=== PATIENT | female | born 2005 | race African-American/Black ===

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

== ENCOUNTER 2024-10-20 08:10 | Inpatient (IN) | payer MEDICAID ==
[~2024-10-20] VITALS: Ht 152.4 cm; Wt 49.1 kg
[2024-10-20 08:35] LABS: Urine Bacteria None Seen /hpf (None Seen)
--- NOTE | 2024-10-20 08:39 | ED.PDOC ---
HPI Comments 19 year old female presents to the ED with chief complaint of palpitations and chest pain. Patient reports that she has been experiencing palpitations with associated sharp chest pain since last night, being unable to sleep due to them. Patient relays that she has had intermittent palpitations in the past and was evaluated by a water jet loom fixer. Patient states she had an ultrasound of the heart performed and a stress test, but no diagnosis has been made. Patient notes she takes Metoprolol and her last palpitation episode was on 10/12/24. Patient denies any SOB, dizziness, N/V, headache, numbness, or weakness. Time Seen by MD: 08:37 Primary Care Provider: none Reviewed Notes: Nurses Notes, Medications, Allergies Allergies: Coded Allergies: NO KNOWN ALLERGIES (Unverified , 02/06/23) Home Meds Active Scripts Acetaminophen (Tylenol 8 Hour Arthritis) 650 Mg Tab, 650 MG PO TID, #30 TAB Prov:TALADRIANA COLE 02/06/23 Information Source: Patient Mode of Arrival: Ambulatory Severity: Moderate Timing: Hours Duration: Since onset Prehospital treatment: None Location: Chest (L) Radiation: No Radiation Quality: Sharp Onset: At Rest Cardiac Risk Factors: None PE Risk Factors: None History of: Similar pain in past Associated Signs and Symptoms: Palpitations Past Medical History PAST MEDICAL HISTORY: Denies Surgical History: Denies all surgeries [employer]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 Family History Family History: Reviewed,noncontributory to illness Social History Smoker: Non-Smoker Alcohol: Denies ETOH Use Drugs: Denies Drug Use Lives In: Home Constitutional: denies: chills, diaphoresis, fatigue, fever, malaise, sweats, weakness, others EENTM: denies: blurred vision, double vision, ear bleeding, ear discharge, ear drainage, ear pain, ear ringing, eye pain, eye redness, hearing loss, mouth pain, mouth swelling, nasal discharge, nose bleeding, nose congestion, nose pain, photophobia, tearing, throat pain, throat swelling, voice changes, others Respiratory: denies: cough, hemoptysis, orthopnea, SOB at rest, shortness of breath, SOB with excertion, stridor, wheezing, others Cardiovascular: reports: chest pain, palpitations; denies: dizzy spells, diaphoresis, Dyspnea on exertion, edema, irregular heart beat, left arm pain, lightheadedness, PND, syncope, others Gastrointestinal: denies: abdomen distended, abdominal pain, blood streaked bowels, constipated, diarrhea, dysphagia, difficulty swallowing, hematemesis, melena, nausea, poor appetite, poor fluid intake, rectal bleeding, rectal pain, vomiting, others Genitourinary: denies: abnormal vagina bleeding, burning, dyspareunia, dysuria, flank pain, frequency, hematuria, incontinence, pain, , vagina discharge, urgency, others Neurological: denies: dizziness, fainting, headache, left sided numbness, left sided weakness, numbness, paresthesia, pre-existing deficit, right sided numbness, right sided weakness, seizure, speech problems, tingling, tremors, weakness, others Musculoskeletal: denies: back pain, gout, joint pain, joint swelling, muscle pain, muscle stiffness, neck pain, others Integumetry: denies: bruises, change in color, change in hair/nails, dryness, laceration, lesions, lumps, rash, wounds, others Allergic/Immunocompromised: denies: Difficulty Healing, Frequent Infections, Hives, Itching, others Hematologic/Lymphatic: denies: anemia, blood clots, easy bleeding, easy bruising, swollen glands, others Endocrine: denies: excessive hunger, excessive sweating, excessive thirst, excessive urination, flushing, intolerance to cold, intolerance to heat, unexplained weight gain, unexplained weight loss, others Psychiatric: denies: anxiety, bipolar disorder, depression, hopeless, panic disorder, schizophrenia, sleepless, suicidal, others All Other Systems: Reviewed and Negative Physical Exam General Appearance: Moderate Distress, Normal HEENT: Normal ENT Inspection, PERRL/EOMI Neck: Full Range of Motion, Non-Tender, Normal, Normal Inspection Respiratory: Chest Non-Tender, Lungs Clear, No Accessory Muscle Use, No Respiratory Distress, Normal Breath Sounds Cardiovascular: Irregular, No Edema, No JVD, No Murmur, No Gallop, Normal Peripheral Pulses Breast Exam: Deferred Gastrointestinal: No Organomegaly, Non Tender, No Pulsatile Mass, Normal Bowel Sounds, Soft Genitalia: Deferred Pelvic: Deferred Rectal: Deferred Extremities: No calf tenderness, Normal capillary refill, Normal inspection, Normal range of motion, Non-tender, No pedal edema Musculoskeletal : Apperance: Normal Neurologic: Alert, scouring train operator II-XII nml as Tested, No Motor Deficits, Normal Affect, Normal Mood, No Sensory Deficits Cerebellar Function: Normal Reflexes: Normal Skin: Dry, Normal Color, Warm Peripheral Pulses: 3+ Radial (R), 3+ Radial (L) Lymphatic: No Adenopathy Was a procedure done? Was a procedure done?: No CP Differential Dx Differential Diagnosis: A-fib, A-Flutter, Angina, Anxiety / Panic Attack, Atrial Dysrhythmia, Electrolyte Disorder X-Ray, Labs, Meds, VS Lab Test 10/20/24 08:25 Range/Units Urine Color Pending Urine Clarity Pending Urine pH Pending Urine Specific [place] Pending Urine Protein Pending Urine Ketones Pending Urine Blood Pending Urine Nitrite Pending Urine Bilirubin Pending Urine Urobilinogen Pending Urine Leukocyte Esterase Pending Urine RBC Pending Urine Microscopic WBC Pending Urine Squamous Epithelial Cells Pending Urine Bacteria Pending Urine Glucose Pending Patient alert. Complaining of palpitations. EKG does show premature ventricular contractions. Saturation pristine on room air. Echocardiogram. Was given aspirin. Was given Ativan. Reviewed her previous visit. Explained to the patient. Continue cardiac monitoring. Time of 1ST Reevaluation: 09:37 Reevaluation 1ST: Unchanged Patient Education/Counseling: Diagnosis, Treatment Family Education/Counseling: No Family Present Additional Information I reviewed the following notes from patient's past medical encounters: 04/24/23 for Rt Shoulder Dislocation The following tests were ordered, and results were reviewed by me: CBC, BMP, UA, Troponin Additional Information was gathered from interviewing the following independent historians: None I reviewed and agreed with the following test results read by other providers: None I discussed treatment and results with medical personnel. Departure 1 Departure Time of Disposition: 08:48 Impression: Primary Impression: Mitral valve disease Additional Impression: Premature ventricular contraction Disposition: ADMITTED INPATIENT Admit to: Med Surg Condition: Guarded Critical Care Note Critical Care Time?: Yes (45 min-critical care time only) Critical care comment: Premature menstrual contraction. Continue to monitor. Stability Stability form required: No Heart Score Heart Score: Heart Score Response (Comments) Value History Highly Suspicious 2 EKG Normal 0 Age <45 0 Risk Factors No known risk factors 0 Troponin Normal limit 0 Total 2 I personally scribed for SAMIR LONG MD ([email or web address]) on 10/20/24 at 08:39. Electronically submitted by Devante Aranda ([email or web address]). SAMIR LONG MD Oct 20, 2024 08:39
[2024-10-20 08:43] VITALS: PULSE 96; RESP 16; O2SAT 100
[2024-10-20 08:52] LABS: Urine Blood Negative /uL (Negative); Urine Clarity Clear (Clear); Urine Color Yellow (Yellow); Urine Hyaline Cast FEW /lpf (0 - 2); Urine Mucus FEW (None Seen); Urine Protein, UAD TRACE (Negative); Urine Specific Gravity 1.031 (1.001-1.035); Urine Squamous Epithelial Cell FEW /hpf (<5); Urine Urobilinogen Normal (Negative); Urine WBC 3 /HPF (0-5); Urine pH 5.5 (5.0-9.0)
[2024-10-20] MEDS: LORazepam 0.5 MG TAB PO ONE (08:53)
[2024-10-20] MEDS: ASPirin 325 MG TAB PO ONE (08:54)
[2024-10-20 09:14] LABS: Anion Gap 6 (5-15); Carbon Dioxide 27 mmol/L (20-31); Chloride 106 mmol/L (98-107); Sodium 139 mmol/L (136-145)
[2024-10-20 09:15] LABS: Calcium 10.2 mg/dL (8.7-10.4)
[2024-10-20 09:20] LABS: BUN/Creatinine Ratio 10.5 (10.0-20.0)
[2024-10-20 09:21] LABS: Blood Urea Nitrogen 8 mg/dL (9-23); Glucose 64 mg/dL (74-106); Potassium 3.5 mmol/L (3.5-5.1)
[2024-10-20 09:24] LABS: Basophils # (auto) 0 10 ^3/uL (0-0.2); Basophils % (auto) 0.6 % (0.0-2.0); Eosinophils # (auto) 0.1 10 ^3/uL (0-0.8); Eosinophils % (auto) 0.8 % (0.0-7.0); Hematocrit 42.4 % (36.0-46.0); Hemoglobin 14.4 g/dL (12.2-16.2); Lymphocytes # (auto) 3.6 10 ^3/uL (0.4-5.4); Lymphocytes % (auto) 43.5 % (10.0-50.0); Mean Corpuscular Hemoglobin 30.1 pg (28.0-32.0); Mean Corpuscular Volume 88.4 fL (80.0-100.0); Monocytes # (auto) 0.5 10 ^3/uL (0-1.3); Monocytes % (auto) 5.7 % (0.0-12.0); Neutrophils % (auto) 49.4 % (37.0-80.0); Nucleated Red Blood Cells % 0.1 %; Platelet Count (auto) 382 10^3/uL (140-450); Red Cell Distribution Width 13.4 % (11.8-14.3); White Blood Cell 8.2 10^3/uL (4.4-10.8)
[2024-10-20] MEDS ORDERED: MORPHINE SULFATE INJ 2 MG/ml SYRG IV PRN (10:30)
[2024-10-20] MEDS ORDERED: ONDANSETRON HCL 4 MG/2 ML VIAL IV PRN (10:30)
[2024-10-20] MEDS ORDERED: ACETAMINOPHEN 325 MG TAB PO PRN (10:30)
[2024-10-20] MEDS ORDERED: NITROGLYCERIN 0.4 MG SL TAB SL PRN (10:30)
--- NOTE | 2024-10-20 10:42 | DVHHP2 ---
History of Present Illness Reason for Visit: Palpitations History of Present Illness Mickey Bautista is a 19-year-old female with past medical history of palpitations who presents to the ED with palpitation and chest pain x1 day. Patient states that it started around 6:00 a.m. a.m. sharp and intermittent in nature. Patient states that she was just lying in bed when the palpitations started. Mom at chairside states that this occurred right after going through labor in February of 2024. Patient states that she sees a clothing room supervisor at [facility] and also takes metoprolol. Patient denies smoking, drinking, and illicit drug use. Patient is also denies fever, chills, recent sick contacts, recent illnesses, abdominal pain, nausea, vomiting, diarrhea, lightheadedness, and weakness. Cardiovascular: Other (Palpitations) Past Surgical History: None Family History: Hypertension, Other (Mom with hypertension) Smoke: No ALCOHOL: none Drugs: None Lives: with Family Domestic Violence: Neg Review of Systems Constitutional: No: Fever, Chills, Sweats, Weakness, Malaise, Other Eyes: No: Pain, Vision change, Conjunctivae inflammation, Eyelid inflammation, Other, Redness ENT: No: Ear pain, Ear discharge, Nose pain, Nose discharge, Nose congestion, Mouth pain, Mouth swelling, Throat pain, Throat swelling, Other Respiratory: No: Cough, Dry, Shortness of breath, SOB with excertion, Wheezing, Hemoptysis, Pleuritic Pain, Sputum, Wheezing, Other Cardiovascular: Palpitations; No: Chest Pain, Orthopnea, Paroxysmal Noc. Dyspnea, Edema, Lt Headedness, Other Gastrointestinal: No: Nausea, Vomiting, Abdominal Pain, Diarrhea, Constipation, Melena, Hematochezia, Other Genitourinary: No Dysuria, No Frequency, No Incontinence, No Hematuria, No Retention, No Other Musculoskeletal: No: other, neck pain, shoulder pain, arm pain, back pain, hand pain, leg pain, foot pain Skin: No: Rash, Lesions, Jaundice, Bruising, Other Neurological: No: Weakness, Numbness, Incoordination, Change in speech, Confusion, Seizures, Other Allergies: Coded Allergies: NO KNOWN ALLERGIES (Unverified , 02/06/23) Medications Current Medications Medications Dose Ordered Sig/Mack Route Start Time Stop Time Status Last Admin Dose Admin Ondansetron HCl 4 mg Q4HP PRN IV 10/20/24 10:30 UNV Acetaminophen 650 mg Q6HP PRN PO 10/20/24 10:30 UNV Nitroglycerin 0.4 mg Q5MINP PRN SL 10/20/24 10:30 UNV Morphine Sulfate 2 mg Q30M PRN IV 10/20/24 10:30 UNV Exam Vital Signs Vital Signs Date Time Temp Pulse Resp B/P (MAP) Pulse Ox O2 Delivery O2 Flow Rate FiO2 10/20/24 08:56 96 10/20/24 08:48 98.9 16 108/52 (70) 100 98.9 10/20/24 08:43 Room Air* 0 21 General Appearance: Alert, Oriented X3, Cooperative, No acute distress HEENT: Atraumatic, PERRLA, EOMI, Mucous membr. moist/pink Respiratory: Clear to auscultation, Normal air movement Cardiovascular: Normal S1, Normal S2 Abdominal: Normal bowel sounds, Soft, No tenderness, No hepatospenomegaly, No masses Extremities: No clubbing, No cyanosis, No edema, Normal pulses, No tenderness/swelling Skin: No rashes, No breakdown, No significant lesion Neuro: Normal gait, Normal speech, Strength at 5/5 X4 ext, Normal tone, Sensation intact Psych/Mental Status: Mental status NL, Mood NL Labs/Xrays Labs Test 10/20/24 09:46 10/20/24 08:40 10/20/24 08:25 Range/Units Troponin I High Sensitivity < 3 L </=34 ng/L White Blood Count 8.2 4.4-10.8 10^3/uL Red Blood Count 4.80 4.0-5.20 10^6/uL Hemoglobin 14.4 12.2-16.2 g/dL Hematocrit 42.4 36.0-46.0 % Mean Corpuscular Volume 88.4 80.0-100.0 fL Mean Corpuscular Hemoglobin 30.1 28.0-32.0 pg Mean Corpuscular Hemoglobin Concent 34.0 32.0-36.0 g/dL Red Cell Distribution Width 13.4 11.8-14.3 % Platelet Count 382 140-450 10^3/uL Mean Platelet Volume 8.0 6.9-10.8 fL Neutrophils (%) (Auto) 49.4 37.0-80.0 % Lymphocytes (%) (Auto) 43.5 10.0-50.0 % Monocytes (%) (Auto) 5.7 0.0-12.0 % Eosinophils (%) (Auto) 0.8 0.0-7.0 % Basophils (%) (Auto) 0.6 0.0-2.0 % Neutrophils # (Auto) 4.0 1.6-8.6 10 ^3/uL Lymphocytes # (Auto) 3.6 0.4-5.4 10 ^3/uL Monocytes # (Auto) 0.5 0-1.3 10 ^3/uL Eosinophils # (Auto) 0.1 0-0.8 10 ^3/uL Basophils # (Auto) 0 0-0.2 10 ^3/uL Nucleated Red Blood Cells 0.1 % Sodium Level 139 136-145 mmol/L Potassium Level 3.5 3.5-5.1 mmol/L Chloride Level 106 98-107 mmol/L Carbon Dioxide Level 27 20-31 mmol/L Anion Gap 6 5-15 Blood Urea Nitrogen 8 L 9-23 mg/dL Creatinine 0.76 0.550-1.02 mg/dL Glomerular Filtration Rate Calc 115 >90 mL/min BUN/Creatinine Ratio 10.5 10.0-20.0 Serum Glucose 64 L 74-106 mg/dL Calcium Level 10.2 8.7-10.4 mg/dL Urine Color Yellow Yellow Urine Clarity Clear Clear Urine pH 5.5 5.0-9.0 Urine Specific Call 1.031 1.001-1.035 Urine Protein Trace H Negative Urine Ketones Negative Negative Urine Blood Negative Negative /uL Urine Nitrite Negative Negative Urine Bilirubin Negative Negative Urine Urobilinogen Normal Negative mg/dL Urine Leukocyte Esterase Trace Negative /uL Urine RBC 1 0 - 4 /hpf Urine Microscopic WBC 3 0-5 /HPF Urine Squamous Epithelial Cells Few <5 /hpf Urine Bacteria None seen None Seen /hpf Urine Hyaline Casts Few 0 - 2 /lpf Urine Mucus Few None Seen Urine Glucose Normal Normal mg/dL Assessment/Plan Assessment/Plan Assessment/Plan: Palpitations Labs UA Ativan given ED Aspirin given ED EKG Troponin negative x2 Chest x-ray UDS Mag level TSH Lipid Echo ordered A.m. labs Cardiac consult FEN/PPX Diet Hep-Lock DVT ppx - not indicated patient ambulating PUD prophylaxis not indicated patient no history of GI bleed or GERD Discussed plan of care with patient, patient's mom and nurse Home medications reconciled Admit to tele Plan discussed with: Patient, Other (mom) My Orders Orders - KELLIE TURNER Procedure Category Date Status Time Drug Screen LAB 10/20/24 Logged 10:28 Magnesium LAB 10/20/24 Logged 10:28 Thyroid Stimulating LAB 10/20/24 Logged Hormone 10:28 Lipid Panel LAB 10/20/24 Logged 10:28 Echo 2d Mode Cardiac US 10/20/24 Logged DOP 10:28 Admit ADMIT 10/20/24 Transmitted 10:28 Allergies JAMES 10/20/24 In Process 10:28 Code Status CODE 10/20/24 Transmitted 10:28 Ondansetron Hcl PHA 10/20/24 Logged (Zofran) 10:30 Complete Blood Count LAB 10/21/24 Verified 04:00 Comprehensive LAB 10/21/24 Verified Metabolic Panel 04:00 Cardiac DIET 10/20/24 Transmitted Diet-2gna,Lofat,Lochol Lunch Acetaminophen Tablet PHA 10/20/24 Logged (Tylenol Tablet) 10:30 Nitroglycerin PHA 10/20/24 Logged Sublingual (Ntrostat 10:30 Morphine Sulfate PHA 10/20/24 Logged Injection 10:30 Stat Ekg For Chest [facility] 10/20/24 In Process Pain 10:28 Notify Md Of Changes JAMES 10/20/24 In Process From Base 10:28 Armament Mechanic For [facility] 10/20/24 In Process 24 Hours 10:28 Emergency Dysrhythmia JAMES 10/20/24 In Process Protocol 10:28 Rhythm Strips Once [facility] 10/20/24 In Process Every Shift 10:28 Oxygen By Nasal RT 10/20/24 Transmitted Cannula 10:28 Chest Xray 1 View XY 10/20/24 Logged 10:32 Date of Service: Oct 20, 2024 Billing Provider: KELLIE TURNER Common Visit Codes: [id number] INP/OBS CARE (HIGH) KELLIE TURNER Oct 20, 2024 10:42
--- NOTE | 2024-10-20 11:07 | ECG ---
[facility] Test Date: 2024-10-20 Test Time: 08:18:24 Pat Name: AARTI GREEN Department: ER Room: 0290T Gender: F Pattern Duplicator: ARELIS : 2005 Requested By: SAMIR LONG Order Number: [id number] Reading MD: Qasim Mehta Measurements Intervals M[place]ar[place] Rate: 84 P: 64 IL: 170 QRS: 73 QRSD: 87 T: 58 QT: 379 QTc: 449 Interpretive Statements Sinus rhythm Ventricular tachycardia, unsustained Borderline T abnormalities, anterior leads Electronically Signed On 10-22-2024 17:05:22 PST by Qasim Mehta Please click the below link to view image of tracing.
[2024-10-20 11:21] LABS: Amphetamine Screen, Urine Neg (NEGATIVE); Barbiturate Scree,Urine Neg (NEGATIVE); Benzodiazephine Screen, Urine Neg (NEGATIVE); Cannabinoid Screen, Urine Neg (NEGATIVE); Cocaine Screen, Urine Neg (NEGATIVE); Opiate Scree,Urine Neg (NEGATIVE); Phencyclidine Screen, Urine Neg (NEGATIVE)
--- NOTE | 2024-10-20 11:59 | DVHINCON2 ---
Date Seen: Oct 20, 2024 Referring Physician MORA Camp Reason for Consultation Palpitations History of Present Illness This is a pleasant 19 year old female who presented to the emergency room with a chief complaint of palpitations last night. The patient complains of intermittent, non-provoked palpitations which are sharp in nature since last night. Denies shortness of breath, dizziness, or syncopal events. Reports the onset of symptoms originally started during her latest gestation with delivery on 02/2024. She had been seen by a primary general education professor, Dr. Mims, who RX Metoprolol Succ 50 mg QD and undergoing an uneventful event monitor and exercise echocardiogram. A 12 lead electrocardiogram revealed a sinus rhythm with ventricular bigeminy and nonsustained ventricular tachycardia. There is no other significant medical history reported. Past Medical History Past medical history reviewed. No other significant than mentioned above. Past Surgical History Past Surgical history reviewed. No other significant than mentioned above. Family History Family history reviewed. Mother with hypertension. Social History Denies the use of illicit drugs, alcohol, or tobacco use. Allergies: Coded Allergies: NO KNOWN ALLERGIES (Unverified , 02/06/23) Home Meds Active Scripts Acetaminophen (Tylenol 8 Hour Arthritis) 650 Mg Tab, 650 MG PO TID, #30 TAB Prov:ADRIANA PARADA 02/06/23 Home Meds Home medications reviewed. Current Medications Current Medications Medications (Trade) Dose Ordered Sig/Mack Route PRN Reason Start Time Stop Time Status Last Admin Ondansetron HCl (Zofran) 4 mg Q4HP PRN IV NAUSEA / VOMITING 10/20/24 10:30 Acetaminophen (Tylenol Tablet) 650 mg Q6HP PRN PO PAIN SCALE 1-3 OR TEMP>100.4 10/20/24 10:30 Nitroglycerin (Ntrostat Sublingual) 0.4 mg Q5MINP PRN SL FOR CHEST PAIN 10/20/24 10:30 Morphine Sulfate 2 mg Q30M PRN IV FOR CHEST PAIN 10/20/24 10:30 Review of Systems Constitutional: No symptom reported Ears, Nose, & Throat: No symptom reported Eyes: No symptom reported Neurological: No symptoms reported Pulmonary/Respiratory: No symptom reported Cardiovascular: Palpitations Gastrointestinal: No symptom reported Genitourinary: No symptom reported Musculoskeletal: No symptom reported Skin: No symptom reported Psychiatric: No symptom reported Endocrine: No symptom reported Hemotologic/Lymphatic: No symptom reported Vital Signs Vital Signs Date Time Temp Pulse Resp B/P (MAP) Pulse Ox O2 Delivery O2 Flow Rate FiO2 10/20/24 08:56 96 10/20/24 08:48 98.9 16 108/52 (70) 100 98.9 10/20/24 08:43 Room Air* 0 21 Physical Exam General Appearance: Cooperative. Well developed. Well nourished. In no acute distress Head Exam: Normal inspection Neck Exam: Normal inspection. Non-tender. Normal alignment Pulmonary/Respiratory: Chest non-tender. Clear bilateral breath sounds Cardiovascular/Chest: Regular rate and rhythm. S1, S2. Sinus rhythm with ventricular bigeminy and nonsustained V-tach. No murmurs. No JVD. Peripheral Pulses: 2+ Radial (R). 2+ Radial (L). 2+ Pedal (R). 2+ Pedal (L) Abdominal Exam: Normal bowel sounds. Soft. Nontender. No hepatospenomegaly. No masses Ankle Exam: Negative ankle edema Lower extremities: Negative lower extremity edema Neuro/Mental Status: A&O x4. Coherent Thoughts/Psych: Normal thought pattern. Appropriate mood and affect. Good judgement and insight Appearance: In no acute distress Skin Exam: Normal inspection. Normal color. Warm. Dry Labs/Diagnostic Data Labs Test 10/20/24 09:46 10/20/24 08:40 10/20/24 08:25 Range/Units Troponin I High Sensitivity < 3 L </=34 ng/L White Blood Count 8.2 4.4-10.8 10^3/uL Red Blood Count 4.80 4.0-5.20 10^6/uL Hemoglobin 14.4 12.2-16.2 g/dL Hematocrit 42.4 36.0-46.0 % Mean Corpuscular Volume 88.4 80.0-100.0 fL Mean Corpuscular Hemoglobin 30.1 28.0-32.0 pg Mean Corpuscular Hemoglobin Concent 34.0 32.0-36.0 g/dL Red Cell Distribution Width 13.4 11.8-14.3 % Platelet Count 382 140-450 10^3/uL Mean Platelet Volume 8.0 6.9-10.8 fL Neutrophils (%) (Auto) 49.4 37.0-80.0 % Lymphocytes (%) (Auto) 43.5 10.0-50.0 % Monocytes (%) (Auto) 5.7 0.0-12.0 % Eosinophils (%) (Auto) 0.8 0.0-7.0 % Basophils (%) (Auto) 0.6 0.0-2.0 % Neutrophils # (Auto) 4.0 1.6-8.6 10 ^3/uL Lymphocytes # (Auto) 3.6 0.4-5.4 10 ^3/uL Monocytes # (Auto) 0.5 0-1.3 10 ^3/uL Eosinophils # (Auto) 0.1 0-0.8 10 ^3/uL Basophils # (Auto) 0 0-0.2 10 ^3/uL Nucleated Red Blood Cells 0.1 % Sodium Level 139 136-145 mmol/L Potassium Level 3.5 3.5-5.1 mmol/L Chloride Level 106 98-107 mmol/L Carbon Dioxide Level 27 20-31 mmol/L Anion Gap 6 5-15 Blood Urea Nitrogen 8 L 9-23 mg/dL Creatinine 0.76 0.550-1.02 mg/dL Glomerular Filtration Rate Calc 115 >90 mL/min BUN/Creatinine Ratio 10.5 10.0-20.0 Serum Glucose 64 L 74-106 mg/dL Calcium Level 10.2 8.7-10.4 mg/dL Magnesium Level 2.0 1.6-2.6 mg/dL Triglycerides Level 88 < 150 mg/dL Cholesterol Level 157 < 200 mg/dL LDL Cholesterol 94 < 100 mg/dL HDL Cholesterol 47 40-59 mg/dL Thyroid Stimulating Hormone (TSH) 1.91 0.55-4.78 uIU/mL Urine Color Yellow Yellow Urine Clarity Clear Clear Urine pH 5.5 5.0-9.0 Urine Specific [place] 1.031 1.001-1.035 Urine Protein Trace H Negative Urine Ketones Negative Negative Urine Blood Negative Negative /uL Urine Nitrite Negative Negative Urine Bilirubin Negative Negative Urine Urobilinogen Normal Negative mg/dL Urine Leukocyte Esterase Trace Negative /uL Urine RBC 1 0 - 4 /hpf Urine Microscopic WBC 3 0-5 /HPF Urine Squamous Epithelial Cells Few <5 /hpf Urine Bacteria None seen None Seen /hpf Urine Hyaline Casts Few 0 - 2 /lpf Urine Mucus Few None Seen Urine Glucose Normal Normal mg/dL Urine Opiates Screen Neg NEGATIVE Urine Fentanyl Screen Neg NEGATIVE Urine Barbiturates Screen Neg NEGATIVE Urine Phencyclidine Screen Neg NEGATIVE Urine Amphetamines Screen Neg NEGATIVE Urine Benzodiazepines Screen Neg NEGATIVE Urine Cocaine Screen Neg NEGATIVE Urine Cannabinoids Screen Neg NEGATIVE Assessment Ventricular bigeminy Nonsustained ventricular tachycardia Rule out structural heart disease Plan/Recommendation (Dr. Hernandez) The patient with symptomatic ventricular bigeminy and nonsustained ventricular tachycardia will be initiated on potassium and magnesium replacement as well as continuation of metoprolol XL. She will be referred to electrophysiology for further assessment. In the meantime, obtain a transthoracic echocardiogram to rule out structural heart disease. Continue EP recommendations. In the setting of an unremarkable echocardiogram there is no further cardiac workup indicated at this time. Thank you for allowing us to participate in this patient's care. Please call if you have any questions or concerns. This medical document was created using an electronic medical record system with voice recognition software and computerized dictation system. Although this document has been carefully reviewed, there might still be some phonetic and typographical errors. Occasional wrong-word or ``sound-alike substitutions may have occurred due to the inherent limitations of voice recognition software. These areas are purely typographical due to imperfections of the software programs and do not reflect any compromise in the patient's medical care. Please read the chart carefully and recognize, using context, where these s ubstitutions have occurred. Plan discussed with: Patient, Other NYHA Physical activity limitations: NA Date of Service: Oct 20, 2024 Billing Provider: EVELINA HERNANDEZ MD Cardiology Common Codes: [id number] INP/OBS CARE (High) SAVANAH GILLIAM [facility] Oct 20, 2024 11:59
[2024-10-20] MEDS: POTASSIUM CHL 20 Meq TABLET PO ONE (12:42)
[2024-10-20] MEDS: METOPROLOL SUCCINATE XL 50 MG TAB PO ONE ×2 (12:47→16:46)
[2024-10-20] MEDS: MAGNESIUM SULFATE 1GM/100ML 100 ML IV ONE (12:53)
[2024-10-20 14:39] VITALS: BP 112/56; PULSE 74; PULSE 76; RESP 18; TEMP 98.2; O2SAT 100
[2024-10-20 15:00] VITALS: BP 109/70; PULSE 79; RESP 14; TEMP 98; O2SAT 100
[2024-10-20 16:44] VITALS: BP 113/65; PULSE 74; RESP 14; TEMP 98.2; O2SAT 100
--- NOTE | 2024-10-20 19:28 | DVHSR ---
APPROVED REPORT EXAM: Two-dimensional and M-mode echocardiogram with Doppler and color Doppler. Blood Pressure: 108/52 mmHg INDICATION Palpitations RISK FACTORS Height: 5', Weight: 99 DIMENSIONS LVDd3.4 (3.8-5.7cm)LA (2D)3.8 (1.9-4.0cm)Aortic Root2.4 (2.0-3.7cm) LVDs2.5 (2.5-4.0cm)LA (MM) (1.9-4.0cm)Aortic Cusp Exc1.5 (1.5-2.0cm) EF (%) 55.0 (55-70%)Rt. Atrium3.4 (1.9-4.0cm)Asc. Aorta cm IVSd0.8 (0.7-1.1cm)RV (D) (1.8-2.4cm) PWd0.8 (0.7-1.1cm) Mitral Valve MitralMitral Stenosis E wave0.70m/sMV Mean GR.mmHg A wave0.50m/sMV Peak GR.mmHg E/A ratio1.42D MVAcm2 Aortic Valve Aortic ValveAortic Stenosis V10.50m/Louis Mean GR.2mmHg V20.80m/Louis Peak GR.3mmHg LVOT Diameter1.9 (1.8-2.4cm)Doppler AVA1.77cm2 Pulmonic Valve V20.60m/s LEFT VENTRICLE The left ventricle is of normal size. Wall thickness is normal. Ejection fraction is normal and is estimated at 60%. There is no regional wall motion abnormalities. Diastolic function is normal. RIGHT VENTRICLE The right ventricle is of normal size. Systolic function is normal. ATRIA Both atria are of normal size. Not well visualized. MITRAL VALVE Normal in structure and function. No significant regurgitation. PULMONIC VALVE Likely normal. TRICUSPID VALVE Normal structure and function. There is trace tricuspid regurgitation. PA systolic pressure is not adequately estimated. AORTIC VALVE Normal structure and function. GREAT VESSELS The aortic root and proximal ascending aorta are of normal size. PERICARDIAL EFFUSION No significant pericardial effusion. IVC is of normal size and collapses normally with inspiration Other Information Quality : Rhythm : PVC's Conclusion Normal left ventricular size and systolic function. Ejection fraction is estimated at 60%. Normal right ventricular size and systolic function. No hemodynamically significant valvular disease. PA systolic pressure is not adequately estimated. No significant pericardial effusion.
[2024-10-20 20:00] VITALS: PULSE 76
[2024-10-20 21:00] VITALS: BP 97/56; PULSE 78; RESP 20; TEMP 98.6; O2SAT 98
[2024-10-21] VITALS (9 sets, daily range): BP systolic 93–102; BP diastolic 53–64; PULSE 68–86; RESP 16–20; TEMP 97.9–98.4; O2SAT 94–100
[2024-10-21 06:53] LABS: Basophils # (auto) 0 10 ^3/uL (0-0.2); Basophils % (auto) 0.6 % (0.0-2.0); Eosinophils # (auto) 0.1 10 ^3/uL (0-0.8); Eosinophils % (auto) 1.4 % (0.0-7.0); Hematocrit 38.8 % (36.0-46.0); Hemoglobin 13.1 g/dL (12.2-16.2); Lymphocytes # (auto) 2.9 10 ^3/uL (0.4-5.4); Lymphocytes % (auto) 37.7 % (10.0-50.0); Mean Corpuscular Hemoglobin 30.1 pg (28.0-32.0); Mean Corpuscular Hgb Conc. 33.7 g/dL (32.0-36.0); Mean Corpuscular Volume 89.2 fL (80.0-100.0); Monocytes # (auto) 0.5 10 ^3/uL (0-1.3); Monocytes % (auto) 6.5 % (0.0-12.0); Neutrophils # (auto) 4.2 10 ^3/uL (1.6-8.6); Neutrophils % (auto) 53.8 % (37.0-80.0); Platelet Count (auto) 351 10^3/uL (140-450); Red Blood Cells 4.35 10^6/uL (4.0-5.20); Red Cell Distribution Width 13.6 % (11.8-14.3); White Blood Cell 7.8 10^3/uL (4.4-10.8)
[2024-10-21 07:16] LABS: Alanine Aminotransferase 10 U/L (7-40); Albumin 4.4 g/dL (3.2-4.8); Alkaline Phosphatase 64 U/L (46-116); Anion Gap 7 (5-15); Calcium 9.1 mg/dL (8.7-10.4); Carbon Dioxide 20 mmol/L (20-31); Glucose 78 mg/dL (74-106); Sodium 137 mmol/L (136-145)
[2024-10-21 07:17] LABS: Bilirubin, Total 0.4 mg/dL (0.2-1.0); Total Protein 6.9 g/dL (5.7-8.2)
[2024-10-21 07:18] LABS: Aspartate Aminotransferase 10 U/L (13-40); Blood Urea Nitrogen 7 mg/dL (9-23); Chloride 110 mmol/L (98-107); Potassium 3.5 mmol/L (3.5-5.1)
[2024-10-21] MEDS: METOPROLOL SUCCINATE XL 50 MG TAB PO SCH (09:59)
--- NOTE | 2024-10-21 12:48 | DVHINCON2 ---
Date of service: Oct 21, 2024 Referring Physician Heidi Meza NP Reason for Consultation Ventricular Bigeminy and NSVT History of Present Illness This is a 19-year old female who initially presented (10/20/2024) with reported palpitations and chest discomfort that started while at rest on the night prior to initial arrival. Upon ED arrival, initial 12-lead electrocardiogram was performed revealing sinus rhythm at 84 bpm, ventricular bigeminy, with a short run of NSVT (3 beats). 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 Initial HS troponin level was found unremarkable at < 3 with subsequent level of < 3. Electrolytes (magnesium/potassium) are found to be within normal range. TSH level was found normal at 1.91. Subsequent Echocardiogram (10/20/2024) was performed revealing a preserved LVEF of 60%. It is of note she has a previous history of palpitations which she reports initially began in February of 2024 post gestation. As such, she reports she has been undergoing out-patient evaluation by Cardiology services at [facility] with Dr. Mims which she conveys she has undergone previous cardiac workup included event monitoring and possible ischemic workup (records not available for review). She reports she was subsequently placed on Metoprolol Succinate at 50mg once daily which she reports she has been adherent to. At present time of consultation, patient remains on Metoprolol Succinate 25mg once daily. Telemetry reveals sinus rhythm with no observable PVC activity. Subsequent EKG was performed revealing sinus rhythm at 77bpm with no evidence for ectopic beats. Denies any active chest pain, shortness of breath, palpitations, dizziness, syncope, or any further cardiac related symptoms. As the patient presented with palpitations and found to have ventricular arrhythmias, Electrophysiology services have now been involved by Interventional Cardiology request for it evaluation. Past Medical History Past Medical History Past medical history reviewed. No other significant than mentioned above Past Surgical History Past Surgical history reviewed. No other significant than mentioned above. Family History: Patient reports no known family medical history. Allergies: Coded Allergies: NO KNOWN ALLERGIES (Unverified , 02/06/23) Home Meds Active Scripts Acetaminophen (Tylenol 8 Hour Arthritis) 650 Mg Tab, 650 MG PO TID, #30 TAB Prov:ADRIANA PARADA 02/06/23 Current Medications Current Medications Medications (Trade) Dose Ordered Sig/Mack Route PRN Reason Start Time Stop Time Status Last Admin Metoprolol Succinate (Toprol Xl) 25 mg DAILY PO 10/21/24 10:00 10/21/24 10:20 Review of Systems A 14-point review of systems is negative unless otherwise noted above Vital Signs Vital Signs Date Time Temp Pulse Resp B/P (MAP) Pulse Ox O2 Delivery O2 Flow Rate FiO2 10/21/24 10:20 81 104/58 10/21/24 09:00 98.0 17 100 98.0 10/21/24 08:10 Room Air* 0 21 Physical Exam Heart: S1 and S2 regular. The patient is in sinus rhythm. Lungs: Clear to auscultation. Extremities: Distal pulses palpable, 2+. No evidence for peripheral edema Labs/Diagnostic Data Labs Test 10/21/24 11:20 10/21/24 05:57 10/20/24 09:46 10/20/24 08:40 Range/Units Urine Test Positive Negative White Blood Count 7.8 4.4-10.8 10^3/uL Red Blood Count 4.35 4.0-5.20 10^6/uL Hemoglobin 13.1 12.2-16.2 g/dL Hematocrit 38.8 36.0-46.0 % Mean Corpuscular Volume 89.2 80.0-100.0 fL Mean Corpuscular Hemoglobin 30.1 28.0-32.0 pg Mean Corpuscular Hemoglobin Concent 33.7 32.0-36.0 g/dL Red Cell Distribution Width 13.6 11.8-14.3 % Platelet Count 351 140-450 10^3/uL Mean Platelet Volume 7.9 6.9-10.8 fL Neutrophils (%) (Auto) 53.8 37.0-80.0 % Lymphocytes (%) (Auto) 37.7 10.0-50.0 % Monocytes (%) (Auto) 6.5 0.0-12.0 % Eosinophils (%) (Auto) 1.4 0.0-7.0 % Basophils (%) (Auto) 0.6 0.0-2.0 % Neutrophils # (Auto) 4.2 1.6-8.6 10 ^3/uL Lymphocytes # (Auto) 2.9 0.4-5.4 10 ^3/uL Monocytes # (Auto) 0.5 0-1.3 10 ^3/uL Eosinophils # (Auto) 0.1 0-0.8 10 ^3/uL Basophils # (Auto) 0 0-0.2 10 ^3/uL Nucleated Red Blood Cells 0.0 % Sodium Level 137 136-145 mmol/L Potassium Level 3.5 3.5-5.1 mmol/L Chloride Level 110 H 98-107 mmol/L Carbon Dioxide Level 20 20-31 mmol/L Anion Gap 7 5-15 Blood Urea Nitrogen 7 L 9-23 mg/dL Creatinine 0.70 0.550-1.02 mg/dL Glomerular Filtration Rate Calc 127 >90 mL/min BUN/Creatinine Ratio 10.0 10.0-20.0 Serum Glucose 78 74-106 mg/dL Calcium Level 9.1 8.7-10.4 mg/dL Magnesium Level 2.0 1.6-2.6 mg/dL Total Bilirubin 0.4 0.2-1.0 mg/dL Aspartate Amino Transferase (AST) 10 L 13-40 U/L Alanine Aminotransferase (ALT) 10 7-40 U/L Alkaline Phosphatase 64 46-116 U/L Total Protein 6.9 5.7-8.2 g/dL Albumin 4.4 3.2-4.8 g/dL Troponin I High Sensitivity < 3 L </=34 ng/L Triglycerides Level 88 < 150 mg/dL Cholesterol Level 157 < 200 mg/dL LDL Cholesterol 94 < 100 mg/dL HDL Cholesterol 47 40-59 mg/dL Thyroid Stimulating Hormone (TSH) 1.91 0.55-4.78 uIU/mL Test 10/20/24 08:25 Range/Units Urine Color Yellow Yellow Urine Clarity Clear Clear Urine pH 5.5 5.0-9.0 Urine Specific [place] 1.031 1.001-1.035 Urine Protein Trace H Negative Urine Ketones Negative Negative Urine Blood Negative Negative /uL Urine Nitrite Negative Negative Urine Bilirubin Negative Negative Urine Urobilinogen Normal Negative mg/dL Urine Leukocyte Esterase Trace Negative /uL Urine RBC 1 0 - 4 /hpf Urine Microscopic WBC 3 0-5 /HPF Urine Squamous Epithelial Cells Few <5 /hpf Urine Bacteria None seen None Seen /hpf Urine Hyaline Casts Few 0 - 2 /lpf Urine Mucus Few None Seen Urine Glucose Normal Normal mg/dL Urine Opiates Screen Neg NEGATIVE Urine Fentanyl Screen Neg NEGATIVE Urine Barbiturates Screen Neg NEGATIVE Urine Phencyclidine Screen Neg NEGATIVE Urine Amphetamines Screen Neg NEGATIVE Urine Benzodiazepines Screen Neg NEGATIVE Urine Cocaine Screen Neg NEGATIVE Urine Cannabinoids Screen Neg NEGATIVE Plan/Recommendation ASSESSMENT: This is a 19-year old female who initially presented (10/20/2024) with reported palpitations and chest discomfort that started while at rest on the night prior to initial arrival. Upon ED arrival, initial 12-lead electrocardiogram was performed revealing sinus rhythm at 84 bpm, ventricular bigeminy, with a short run of NSVT (3 beats). 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 Initial HS troponin level was found unremarkable at < 3 with subsequent level of < 3. Electrolytes (magnesium/potassium) are found to be within normal range. TSH level was found normal at 1.91. Subsequent Echocardiogram (10/20/2024) was performed revealing a preserved LVEF of 60%. It is of note she has a previous history of palpitations which she reports initially began in February of 2024 post gestation. As such, she reports she has been undergoing out-patient evaluation by Cardiology services at [facility] with Dr. Mims which she conveys she has undergone previous cardiac workup included event monitoring and possible ischemic workup (records not available for review). She reports she was subsequently placed on Metoprolol Succinate at 50mg once daily which she reports she has been adherent to. At present time of consultation, patient remains on Metoprolol Succinate 25mg once daily. Telemetry reveals sinus rhythm with no observable PVC activity. Subsequent EKG was performed revealing sinus rhythm at 77bpm with no evidence for ectopic beats. Denies any active chest pain, shortness of breath, palpitations, dizziness, syncope, or any further cardiac related symptoms. As the patient presented with palpitations and found to have ventricular arrhythmias, Electrophysiology services have now been involved by Interventional Cardiology request for it evaluation. Echocardiogram: (10/20/2024) revealed Normal left ventricular size and systolic function. Ejection fraction is estimated at 60%. Normal right ventricular size and systolic function. No hemodynamically significant valvular disease. PA systolic pressure is not adequately estimated. No significant pericardial effusion. Palpitations Ventricular bigeminy Non-sustained ventricular tachycardia Positive test, likely first trimester Electrophysiology Suggestions for Management: As the patient presented with palpitations and found to have ventricular arrhythmias, Electrophysiology services have now been involved by Interventional Cardiology request for its evaluation. Initial 12-lead electrocardiogram was performed revealing sinus rhythm at 84 bpm, ventricular bigeminy, with a short run of NSVT (3 beats). 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 Throughout present admission, HS troponins and electrolytes have been found unremarkable. TSH level has been found within normal range. LVEF is found preserved at 60% as per Echocardiogram (10/20/2024). Given symptomatic nature upon arrival, patient was subsequently initiated on Metoprolol Succinate 25mg once daily in management of the underlying ventricular arrhythmias. As hospital course has progressed, PVC frequency reveals significant improvement as telemetry reveals predominately sinus rhythm as confirmed by repeat 12 lead electrocardiogram (10/21/2024) requested at time of consultation which revealed sinus rhythm at 77bpm with no evidence for ectopic beats. In observation of the aforementioned above, clinical presentation questions a possible underlying component of non-adherence to her p rescribed beta-kandy therapy. As test is found positive, I did discuss with her at length benefits and risks of proceeding with concurrent beta-kandy therapy including but not limited to the potential risk for growth restriction and pre-term which she verbalized understanding. As symptoms have improved with an overall reduction in PVC activity, patient has elected to proceed with beta-kandy therapy therefore recommendation from an EP perspective is to proceed with beta-kandy therapy as concurrent conditions permit and regular outpatient follow up with her primary art display maker for continued management and event monitoring. During the interim, proceed with close rate/rhythm surveillance, sustain potassium levels above 4.0 as well as magnesium levels above 2.0. Remainder of cardiac management as per Interventional Cardiology services. 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 Morgan, who is in agreement with current plan of car e. Plan of care discussed with and agreed upon by patient / primary RN Prognosis: Guarded Thank you for allowing me to participate in the care of this patient. Further recommendations based on patients clinical course and progression, primary attending, and other consultants. Will continue to follow with primary attending. If you have any questions or concerns, please do not hesitate to contact me. A total of 75 minutes was spent reviewing the patient record, examining the patient, making a diagnostic and therapeutic plan, discussing this plan with medical personnel, following up on diagnostic studies and following the patient for clinical stability excluding any and all procedures. At least 50% of this time was spent in direct, [id number] contact. Plan discussed with: Patient JENNIFER PHELPS Adi LIMITED RADIOLOGY TECHNICIAN Oct 21, 2024 12:48
--- NOTE | 2024-10-21 14:05 | DVHPN2 ---
Reviewed: Care Plan Changes from previous H/P or p: No Changes Eyes: No Pain, No Vision change, No Conjunctivae inflammation, No Eyelid inflammation, No Other, No Redness ENT: No Ear pain, No Ear discharge, No Nose pain, No Nose discharge, No Nose congestion, No Mouth pain, No Mouth swelling, No Throat pain, No Throat swelling, No Other Cardiovascular: No Chest Pain; Palpitations; No Orthopnea, No Paroxysmal Noc. Dyspnea, No Edema, No Lt Headedness, No Other Respiratory: No Cough, No Dry, No Shortness of breath, No SOB with excertion, No Wheezing, No Hemoptysis, No Pleuritic Pain, No Sputum, No Other Gastrointestinal: No Nausea, No Vomiting, No Abdominal Pain, No Diarrhea, No Constipation, No Melena, No Hematochezia, No Other Genitourinary: No Dysuria, No Frequency, No Incontinence, No Hematuria, No Retention, No Other Musculoskeletal: No other, No neck pain, No shoulder pain, No arm pain, No back pain, No hand pain, No leg pain, No foot pain Skin: No Rash, No Lesions, No Jaundice, No Bruising, No Other Objective Vitals Vital Signs Date Time Temp Pulse Resp B/P (MAP) Pulse Ox O2 Delivery O2 Flow Rate FiO2 10/21/24 10:20 81 104/58 10/21/24 09:00 98.0 17 100 98.0 10/21/24 08:10 Room Air* 0 21 Intake/Output Intake and Output 10/21/24 07:00 Intake Total 650 ml Balance 650 ml Intake Oral 550 ml IV Total 100 ml # Voids 1 Medications Current Medications Medications Dose Ordered Sig/Mack Route Start Time Stop Time Status Last Admin Dose Admin Ondansetron HCl 4 mg Q4HP PRN IV 10/20/24 10:30 Acetaminophen 650 mg Q6HP PRN PO 10/20/24 10:30 Nitroglycerin 0.4 mg Q5MINP PRN SL 10/20/24 10:30 Morphine Sulfate 2 mg Q30M PRN IV 10/20/24 10:30 Metoprolol Succinate 25 mg DAILY PO 10/21/24 10:00 10/21/24 10:20 25 MG Laboratory Results Laboratory Tests 10/21/24 05:57 Chemistry Test 10/21/24 05:57 Albumin 4.4 g/dL (3.2-4.8) Calcium Level 9.1 mg/dL (8.7-10.4) Magnesium Level 2.0 mg/dL (1.6-2.6) Total Protein 6.9 g/dL (5.7-8.2) LFT Test 10/21/24 05:57 Alanine Aminotransferase (ALT) 10 U/L (7-40) Alkaline Phosphatase 64 U/L (46-116) Aspartate Amino Transferase (AST) 10 U/L (13-40) L Total Bilirubin 0.4 mg/dL (0.2-1.0) Urinalysis Test 10/20/24 08:25 10/21/24 11:20 Urine Color Yellow (Yellow) Urine Clarity Clear (Clear) Urine pH 5.5 (5.0-9.0) Urine Specific [place] 1.031 (1.001-1.035) Urine Protein Trace (Negative) H Urine Ketones Negative (Negative) Urine Blood Negative /uL (Negative) Urine Nitrite Negative (Negative) Urine Bilirubin Negative (Negative) Urine Urobilinogen Normal mg/dL (Negative) Urine Leukocyte Esterase Trace /uL (Negative) Urine RBC 1 /hpf (0 - 4) Urine Microscopic WBC 3 /HPF (0-5) Urine Squamous Epithelial Cells Few /hpf (<5) Urine Bacteria None seen /hpf (None Seen) Urine Hyaline Casts Few /lpf (0 - 2) Urine Mucus Few (None Seen) Urine Glucose Normal mg/dL (Normal) Urine Test Positive (Negative) Assessment/Plan Assessment/Plan Mickey Bautista is a 19-year-old female with past medical history of palpitations who presents to the ED with palpitation and chest pain x1 day. Patient states that it started around 6:00 a.m. a.m. sharp and intermittent in nature. Patient states that she was just lying in bed when the palpitations started. Mom at chairside states that this occurred right after going through labor in February of 2024. Patient states that she sees a manufacturer's service representative at [facility] and also takes metoprolol. Patient denies smoking, drinking, and illicit drug use. Patient is also denies fever, chills, recent sick contacts, recent illnesses, abdominal pain, nausea, vomiting, diarrhea, lightheadedness, and weakness. Palpitations Ventricular bigeminy Nonsustained ventricular tachycardia Rule out structural heart disease Plan discussed with: Patient Date of Service: Oct 21, 2024 Billing Provider: CAMPBELL SOSA DO Common Visit Codes: [id number] INP/OBS CARE(HIGH) CAMPBELL SOSA DO Oct 21, 2024 14:05
--- NOTE | 2024-10-21 14:52 | ECG ---
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
--- NOTE | 2024-10-21 14:52 | ECG ---
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
--- NOTE | 2024-10-21 14:53 | ECG ---
[facility] Test Date: 2024-10-21 Test Time: 04:57:11 Pat Name: AARTI GREEN Department: Room: 0290T B Gender: F A Class Lineman: [id number] : 2005 Requested By: SAVANAH GILLIAM Order Number: [id number] Reading MD: Sherif Almanza Measurements Intervals [place] Rate: 71 P: 51 [place]: 199 QRS: 74 QRSD: 84 T: 56 QT: 409 QTc: 445 Interpretive Statements Sinus rhythm Ventricular premature complex Electronically Signed On 10-22-2024 8:33:43 PST by Sherif Almanza Please click the below link to view image of tracing.
[2024-10-21] MEDS: LORazepam 2MG/ML-1ML VIAL IV PRN (14:58)
[2024-10-22] VITALS (9 sets, daily range): BP systolic 93–98; BP diastolic 47–89; PULSE 70–89; RESP 17–19; TEMP 97.7–98.8; O2SAT 95–100
--- NOTE | 2024-10-22 13:50 | ECG ---
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
[2024-10-23 01:00] VITALS: BP 92/54; PULSE 74; RESP 19; TEMP 98; O2SAT 97
[2024-10-23 05:00] VITALS: BP 89/47; PULSE 73; RESP 19; TEMP 98.2; O2SAT 97
[2024-10-23 08:00] VITALS: PULSE 79
[2024-10-23 08:50] VITALS: BP 101/56; PULSE 68; RESP 18; TEMP 98.1; O2SAT 98
--- NOTE | 2024-10-23 11:18 | DVHPN2 ---
Progress Note - Dictate Date Seen: Oct 23, 2024 Medical Necessity Reason Pt with a Central, PICC or Fol: No Subjective Seen and examined at the bedside. Hemodynamically stable. Chart reviewed. vital signs Vital Sign Date Time Temp Pulse Resp B/P (MAP) Pulse Ox O2 Delivery O2 Flow Rate FiO2 10/23/24 10:28 77 101/56 10/23/24 08:50 98.1 18 98 98.1 10/23/24 08:00 Room Air* 0 21 Total Intake and Output 10/22/24 10/22/24 10/23/24 15:00 23:00 07:00 Intake Total 600 ml 800 ml Balance 600 ml 800 ml medications Current Medications Medications Dose Ordered Sig/Mack Route Start Time Stop Time Status Last Admin Dose Admin Ondansetron HCl 4 mg Q4HP PRN IV 10/20/24 10:30 Acetaminophen 650 mg Q6HP PRN PO 10/20/24 10:30 Nitroglycerin 0.4 mg Q5MINP PRN SL 10/20/24 10:30 Morphine Sulfate 2 mg Q30M PRN IV 10/20/24 10:30 Metoprolol Succinate 25 mg DAILY PO 10/21/24 10:00 10/23/24 10:28 25 MG Lorazepam 1 mg Q2HP PRN IV 10/21/24 15:00 10/21/24 14:58 1 MG objective S1 and S2 present. RRR Lungs clear to auscultation bilaterally Peripheral pulses 2+. No evidence for peripheral edema. laboratory and microbiology Laboratory Tests 10/21/24 05:57 Test 10/21/24 05:57 Range/Units Serum Glucose 78 74-106 mg/dL Assessment/Plan ASSESSMENT: This is a 19-year old female who initially presented (10/20/2024) with reported palpitations and chest discomfort that started while at rest on the night prior to initial arrival. Upon ED arrival, initial 12-lead electrocardiogram was performed revealing sinus rhythm at 84 bpm, ventricular bigeminy, with a short run of NSVT (3 beats). 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 Initial HS troponin level was found unremarkable at < 3 with subsequent level of < 3. Electrolytes (magnesium/potassium) are found to be within normal range. TSH level was found normal at 1.91. Subsequent Echocardiogram (10/20/2024) was performed revealing a preserved LVEF of 60%. It is of note she has a previous history of palpitations which she reports initially began in February of 2024 post gestation. As such, she reports she has been undergoing out-patient evaluation by Cardiology services at [facility] with Dr. Mims which she conveys she has undergone previous cardiac workup included event monitoring and possible ischemic workup (records not available for review). She reports she was subsequently placed on Metoprolol Succinate at 50mg once daily which she reports she has been adherent to. At present time of consultation, patient remains on Metoprolol Succinate 25mg once daily. Telemetry reveals sinus rhythm with no observable PVC activity. Subsequent EKG was performed revealing sinus rhythm at 77bpm with no evidence for ectopic beats. Denies any active chest pain, shortness of breath, palpitations, dizziness, syncope, or any further cardiac related symptoms. As the patient presented with palpitations and found to have ventricular arrhythmias, Electrophysiology services have now been involved by Interventional Cardiology request for it evaluation. Echocardiogram: (10/20/2024) revealed Normal left ventricular size and systolic function. Ejection fraction is estimated at 60%. Normal right ventricular size and systolic function. No hemodynamically significant valvular disease. PA systolic pressure is not adequately estimated. No significant pericardial effusion. Palpitations Ventricular bigeminy Non-sustained ventricular tachycardia Positive test, likely first trimester Electrophysiology Suggestions for Management: As the patient presented with palpitations and found to have ventricular arrhythmias, Electrophysiology services have now been involved by Interventional Cardiology request for its evaluation. Initial 12-lead electrocardiogram was performed revealing sinus rhythm at 84 bpm, ventricular bigeminy, with a short run of NSVT (3 beats). 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 Throughout present admission, HS troponins and electrolytes have been found unremarkable. TSH level has been found within normal range. LVEF is found preserved at 60% as per Echocardiogram (10/20/2024). Given symptomatic nature upon arrival, patient was subsequently initiated on Metoprolol Succinate 25mg once daily in management of the underlying ventricular arrhythmias. As hospital course has progressed, PVC frequency reveals significant improvement as telemetry reveals predominately sinus rhythm as confirmed by repeat 12 lead electrocardiogram (10/21/2024) requested at time of consultation which revealed sinus rhythm at 77bpm with no evidence for ectopic beats. In observation of the aforementioned above, clinical presentation questions a possible underlying component of non-adherence to her prescribed beta-kandy therapy. As test is found positive, I did discuss with her at length benefits and risks of proceeding with concurrent beta-kandy therapy including but not limited to the potential risk for growth restriction and pre-term which she verbalized understanding. As symptoms have improved with an overall reduction in PVC activity, patient has elected to proceed with beta-kandy therapy therefore recommendation from an EP perspective is to proceed with beta-kandy therapy as concurrent conditions permit and regular outpatient follow up with her primary dermatology teacher for continued management and event monitoring. During the interim, proceed with close rate/rhythm surveillance, sustain potassium levels above 4.0 as well as magnesium levels above 2.0. Remainder of cardiac management as per Interventional Cardiology services. Proceed with close rate and rhythm surveillance Proceed with close hemodynamic surveillance Proceed with optimized blood pressure control Transfuse to sustain HGB level above 7.0 Sustain Magnesium level greater than 2.0 Sustain Potassium level greater than 4.0 Follow up renal function and electrolytes Consider outpatient OB-AIR POLLUTION INSPECTOR evaluation Consider addition of vitamins Management in telemetry Follow up Primary Cardiology recommendations Will proceed to follow from a cardiac perspective Further recommendations per clinical progression All available diagnostic labs, EKG's, and images were personally reviewed Patient's status, findings, and plan of care was reviewed and discussed with supervising physician Dr. Morgan, who is in agreement with current plan of care. Plan of care discussed with and agreed upon by patient / primary RN Prognosis: Guarded Thank you for allowing me to participate in the care of this patient. Further recommendations based on patients clinical course and progression, primary attending, and other consultants. Will continue to follow with primary attending. If you have any questions or concerns, please do not hesitate to contact me. A total of 75 minutes was spent reviewing the patient record, examining the patient, making a diagnostic and therapeutic plan, discussing this plan with medical personnel, following up on diagnostic studies and following the patient for clinical stability excluding any and all procedures. At least 50% of this time was spent in direct, [id number] contact. Plan discussed with: Patient (Patient and Primary RN ) JENNIFER PHELPS Oct 23, 2024 11:18
--- NOTE | 2024-10-23 13:32 | DVHPN2 ---
Reviewed: Care Plan Changes from previous H/P or p: No Changes Eyes: No Pain, No Vision change, No Conjunctivae inflammation, No Eyelid inflammation, No Other, No Redness ENT: No Ear pain, No Ear discharge, No Nose pain, No Nose discharge, No Nose congestion, No Mouth pain, No Mouth swelling, No Throat pain, No Throat swelling, No Other Cardiovascular: No Chest Pain; Palpitations; No Orthopnea, No Paroxysmal Noc. Dyspnea, No Edema, No Lt Headedness, No Other Respiratory: No Cough, No Dry, No Shortness of breath, No SOB with excertion, No Wheezing, No Hemoptysis, No Pleuritic Pain, No Sputum, No Other Gastrointestinal: No Nausea, No Vomiting, No Abdominal Pain, No Diarrhea, No Constipation, No Melena, No Hematochezia, No Other Genitourinary: No Dysuria, No Frequency, No Incontinence, No Hematuria, No Retention, No Other Musculoskeletal: No other, No neck pain, No shoulder pain, No arm pain, No back pain, No hand pain, No leg pain, No foot pain Skin: No Rash, No Lesions, No Jaundice, No Bruising, No Other Objective Vitals Vital Signs Date Time Temp Pulse Resp B/P (MAP) Pulse Ox O2 Delivery O2 Flow Rate FiO2 10/23/24 10:28 77 101/56 10/23/24 08:50 98.1 18 98 98.1 10/23/24 08:00 Room Air* 0 21 Intake/Output Intake and Output 10/23/24 07:00 Intake Total 1400 ml Balance 1400 ml Intake Oral 1400 ml # Voids 5 Medications Current Medications Medications Dose Ordered Sig/Mack Route Start Time Stop Time Status Last Admin Dose Admin Ondansetron HCl 4 mg Q4HP PRN IV 10/20/24 10:30 Acetaminophen 650 mg Q6HP PRN PO 10/20/24 10:30 Nitroglycerin 0.4 mg Q5MINP PRN SL 10/20/24 10:30 Morphine Sulfate 2 mg Q30M PRN IV 10/20/24 10:30 Metoprolol Succinate 25 mg DAILY PO 10/21/24 10:00 10/23/24 10:28 25 MG Lorazepam 1 mg Q2HP PRN IV 10/21/24 15:00 10/21/24 14:58 1 MG Laboratory Results Laboratory Tests 10/21/24 05:57 Urinalysis Test 10/20/24 08:25 10/21/24 11:20 Urine Color Yellow (Yellow) Urine Clarity Clear (Clear) Urine pH 5.5 (5.0-9.0) Urine Specific [place] 1.031 (1.001-1.035) Urine Protein Trace (Negative) H Urine Ketones Negative (Negative) Urine Blood Negative /uL (Negative) Urine Nitrite Negative (Negative) Urine Bilirubin Negative (Negative) Urine Urobilinogen Normal mg/dL (Negative) Urine Leukocyte Esterase Trace /uL (Negative) Urine RBC 1 /hpf (0 - 4) Urine Microscopic WBC 3 /HPF (0-5) Urine Squamous Epithelial Cells Few /hpf (<5) Urine Bacteria None seen /hpf (None Seen) Urine Hyaline Casts Few /lpf (0 - 2) Urine Mucus Few (None Seen) Urine Glucose Normal mg/dL (Normal) Urine Test Positive (Negative) Assessment/Plan Assessment/Plan Mickey Bautista is a 19-year-old female with past medical history of palpitations who presents to the ED with palpitation and chest pain x1 day. Patient states that it started around 6:00 a.m. a.m. sharp and intermittent in nature. Patient states that she was just lying in bed when the palpitations started. Mom at [facility] states that this occurred right after going through labor in February of 2024. Patient states that she sees a mother helper at [facility] and also takes metoprolol. Patient denies smoking, drinking, and illicit drug use. Patient is also denies fever, chills, recent sick contacts, recent illnesses, abdominal pain, nausea, vomiting, diarrhea, lightheadedness, and weakness. Palpitations Ventricular bigeminy Nonsustained ventricular tachycardia Rule out structural heart disease Date of Service: Oct 22, 2024 Billing Provider: CAMPBELL SOSA DO Common Visit Codes: [id number] INP/OBS CARE(HIGH) CAMPBELL SOSA DO Oct 23, 2024 13:31
[2024-10-23] MEDS ORDERED: METO-6 PO (13:38)
--- NOTE | 2024-10-23 13:39 | DVHDS2 ---
Discharge Summary Date of Admission Oct 20, 2024 at 10:41 Date of Discharge: Oct 23, 2024 Labs/Diagnostic Data: Laboratory Results Test 10/21/24 11:20 10/21/24 05:57 10/20/24 09:46 10/20/24 08:40 Urine Test Positive (Negative) White Blood Count 7.8 10^3/uL (4.4-10.8) Red Blood Count 4.35 10^6/uL (4.0-5.20) Hemoglobin 13.1 g/dL (12.2-16.2) Hematocrit 38.8 % (36.0-46.0) Mean Corpuscular Volume 89.2 fL (80.0-100.0) Mean Corpuscular Hemoglobin 30.1 pg (28.0-32.0) Mean Corpuscular Hemoglobin Concent 33.7 g/dL (32.0-36.0) Red Cell Distribution Width 13.6 % (11.8-14.3) Platelet Count 351 10^3/uL (140-450) Mean Platelet Volume 7.9 fL (6.9-10.8) Neutrophils (%) (Auto) 53.8 % (37.0-80.0) Lymphocytes (%) (Auto) 37.7 % (10.0-50.0) Monocytes (%) (Auto) 6.5 % (0.0-12.0) Eosinophils (%) (Auto) 1.4 % (0.0-7.0) Basophils (%) (Auto) 0.6 % (0.0-2.0) Neutrophils # (Auto) 4.2 10 ^3/uL (1.6-8.6) Lymphocytes # (Auto) 2.9 10 ^3/uL (0.4-5.4) Monocytes # (Auto) 0.5 10 ^3/uL (0-1.3) Eosinophils # (Auto) 0.1 10 ^3/uL (0-0.8) Basophils # (Auto) 0 10 ^3/uL (0-0.2) Nucleated Red Blood Cells 0.0 % Sodium Level 137 mmol/L (136-145) Potassium Level 3.5 mmol/L (3.5-5.1) Chloride Level 110 mmol/L (98-107) Carbon Dioxide Level 20 mmol/L (20-31) Anion Gap 7 (5-15) Blood Urea Nitrogen 7 mg/dL (9-23) Creatinine 0.70 mg/dL (0.550-1.02) Glomerular Filtration Rate Calc 127 mL/min (>90) BUN/Creatinine Ratio 10.0 (10.0-20.0) Serum Glucose 78 mg/dL (74-106) Calcium Level 9.1 mg/dL (8.7-10.4) Magnesium Level 2.0 mg/dL (1.6-2.6) Total Bilirubin 0.4 mg/dL (0.2-1.0) Aspartate Amino Transferase (AST) 10 U/L (13-40) Alanine Aminotransferase (ALT) 10 U/L (7-40) Alkaline Phosphatase 64 U/L (46-116) Total Protein 6.9 g/dL (5.7-8.2) Albumin 4.4 g/dL (3.2-4.8) Troponin I High Sensitivity < 3 ng/L (</=34) Triglycerides Level 88 mg/dL (< 150) Cholesterol Level 157 mg/dL (< 200) LDL Cholesterol 94 mg/dL (< 100) HDL Cholesterol 47 mg/dL (40-59) Thyroid Stimulating Hormone (TSH) 1.91 uIU/mL (0.55-4.78) Test 10/20/24 08:25 Urine Color Yellow (Yellow) Urine Clarity Clear (Clear) Urine pH 5.5 (5.0-9.0) Urine Specific [place] 1.031 (1.001-1.035) Urine Protein Trace (Negative) Urine Ketones Negative (Negative) Urine Blood Negative /uL (Negative) Urine Nitrite Negative (Negative) Urine Bilirubin Negative (Negative) Urine Urobilinogen Normal mg/dL (Negative) Urine Leukocyte Esterase Trace /uL (Negative) Urine RBC 1 /hpf (0 - 4) Urine Microscopic WBC 3 /HPF (0-5) Urine Squamous Epithelial Cells Few /hpf (<5) Urine Bacteria None seen /hpf (None Seen) Urine Hyaline Casts Few /lpf (0 - 2) Urine Mucus Few (None Seen) Urine Glucose Normal mg/dL (Normal) Urine Opiates Screen Neg (NEGATIVE) Urine Fentanyl Screen Neg (NEGATIVE) Urine Barbiturates Screen Neg (NEGATIVE) Urine Phencyclidine Screen Neg (NEGATIVE) Urine Amphetamines Screen Neg (NEGATIVE) Urine Benzodiazepines Screen Neg (NEGATIVE) Urine Cocaine Screen Neg (NEGATIVE) Urine Cannabinoids Screen Neg (NEGATIVE) Other Laboratory Tests 10/21/24 05:57 Discharge Disposition: Home Discharge Instruct/Medications Diet: Cardiac 2g Na,low cholest Activity: No Restrictions, As Tolerated Discharge Statement: "Patient was advised to return to the ER or call 911 if any headaches, dizziness, shortness of breath, chest pain, abdominal pain, bleeding, fevers, or worsening of medical condition. Patient was counseled about treatment plan, medications, possible side effects, patientverbalized understanding. All questions were answered to the best of my ability. This discharge took greater then 30 minutes in planning, reviewing documentation, counseling the patient, and discussing with other team members." ASSESSMENT ASSESSMENT Assessment Date of Service: Oct 23, 2024 Billing Provider: CAMPBELL SOSA DO Common Visit Codes: [id number] DISCH DAY >30min CAMPBELL SOSA DO Oct 23, 2024 13:39
--- NOTE | 2024-10-25 15:10 | ECG ---
[facility] Test Date: 2024-10-22 Test Time: 09:45:30 Pat Name: JOSEPHINE GREEN Department: Room: 0290T B Gender: F Complex Human Resources Manager: [email or web address] : 2005 Requested By: CAMPBELL SOSA Order Number: [id number] Reading MD: Measurements Intervals Black Rate: 78 P: 38 NC: 180 QRS: 4 QRSD: 92 T: 48 QT: 354 QTc: 404 Interpretive Statements Sinus rhythm S1,S2,S3 pattern Borderline T abnormalities, anterior leads Please click the below link to view image of tracing.
== END 2024-10-23 14:20 | disposition home or self-care (01) | DRG 201 ==
LOC: ER 08:10 → TELE 10:41 → TELE-WESTW 14:32
PROVIDERS: ADMIT Internal Medicine; ATTEND Internal Medicine
DX: I47.29 Other ventricular tachycardia (principal); I44.7 Left bundle-branch block, unspecified; I49.3 Ventricular premature depolarization; R00.8 Other abnormalities of heart beat; Z32.01 Encounter for pregnancy test, result positive; Z82.49 Family history of ischemic heart disease and other diseases of the circulatory system; Z79.899 Other long term (current) drug therapy
CPT/HCPCS: 36415; 80048; 80053; 80061; 80307; 81001; 81025; 83735; 84443; 84484; 85025; 93005; 93306; 96365; 99291; G0378